=== PATIENT | female | born 1960 | race Caucasian/White ===

== ENCOUNTER → 2018-12-04 13:31 | Outpatient (CLI) | payer BC, SELFPAY ==
[2018-12-06 15:19] LABS: HPV HC, High Risk Positive (Negative)
== END ==
PROVIDERS: Visit Provider Obstetrics & Gynecology
DX: Z12.4 Encounter for screening for malignant neoplasm of cervix (principal)
CPT/HCPCS: 87624; 88175; G0145

== ENCOUNTER → 2018-12-13 13:42 | Outpatient (CLI) | payer BC, SELFPAY ==
--- NOTE | 2018-12-13 | IMM_PTH ---
PATIENT: LUCIANA PARKINSON LOC: [facility] U#:[id number] AGE/SX: 64/F ROOM: RE12/13/[address]: Dr. Gerald Das MD : 1960 BED: DIS: SPEC #: [id number] RECD: 12/14/18 12:25 STATUS: ANDERSON RERemi #: [id number] ALFRED: 12/13/18 00:[address]: Gerald Das DEPT: IMMUNOHISTOCHEMISTRY RECD BY: Tracey Coughlin Tissues: A - Uterine cervix, NOS B - Endocervical Procedures: p16 (initial) KI-67 (add) PHYSICIAN & INSTITUTION [place] [address] SPECIMEN INFORMATION: Tissue Source: A - Cervical biopsy 6 o'clock, B - ECC Clinical Info: Not noted Specimen Number: [id number] A & B CPT code: 48995 x2, 08759 x2 METHODOLOGY: Deparaffinized sections of prefer/formalin-fixed tissue or PAP/DQ stained slides are incubated with monoclonal/polyclonal antibodies/oligonucleotide probes. Localization is made via biotin free immunoperoxidase method. Appropriate controls are performed and reacted as expected. Results on target cell population are indicated in the following table: RESULTS: ANTIBODY / CLONE RESULT Block A P16 (E6H4) positive, patchy and focal Ki-67 (30-9) negative Block B P16 (E6H4) positive, block staining Ki-67 (30-9) positive These tests were developed and their performance characteristics determined by [facility]. They may not have been cleared or approved by the U.S. Food and Drug Administration. The FDA has determined that such clearance or approval is not necessary. INTERPRETATION: A. Cervix, 6 o'clock, biopsy: Focal changes suspicious for HPV cytopathic effects. B. ECC: A minute detached and unoriented fragment of squamous epithelium with moderate dysplastic changes. SJ:theresa 12/15/18
--- NOTE | 2018-12-13 | CER_PTH ---
PATIENT: LUCIANA [facility]ARKINSON [id number] AGE/SX: 64/F ROOM: RE12/13/[address]: Dr. Gerald Das MD : 1960 BED: DIS: SPEC #: [id number] RECD: 12/13/18 13:39 STATUS: ANDERSON VIVIENNE #: [id number] ALFRED: 12/13/18 00:[address]: Gerald Das DEPT: SURGICAL PATHOLOGY RECD BY: Ned Wahl Tissues: A - Uterine cervix, NOS B - Endocervical Procedures: Surgery Specimen Level IV HEADER OPERATION: Colposcopy with biopsy PRE-OP DIAGNOSIS: Not noted TISSUE SUBMITTED: A - Cervical biopsy 6 o'clock, B - ECC MICROSCOPIC DIAGNOSIS A. Cervix, 6 o'clock, biopsy: Focal changes suspicious for HPV cytopathic efficets. Acute and chronic inflammation. See comment. B. ECC: A minute detached and unoriented fragment of squamous epithelium with moderate dysplastic changes (HGSIL, ROSEMARIE II). Fragments of benign endocervical epithelium, benign endocervical mucosa with acute and chronic inflammation, blood and mucous. SOFIYA:theresa 12/14/18 COMMENT A. Immunohistochemistry ([id number]) for surrogate HPV marker (p16) supports the above diagnosis. The specimen predominantly consists of squamous epithelium, squamous mucosa and desquamative benign endocervical epithelial cells. B. Immunohistochemistry ([id number]) for surrogate HPV marker (p16) supports the above diagnosis. MICROSCOPIC DESCRIPTION Slides are reviewed. GROSS DESCRIPTION A - Received in fixative is one container labeled with the patient's name and designated cervical biopsy. The specimen consists of multiple irregular fragments of light robin soft tissue that in aggregate measure 1 x 0.2 x 0.1 cm. The specimen is totally submitted in one cassette. B - Received in fixative is one container labeled with the patient's name and designated ECC. The specimen consists of a scant amount of mucoid tissue submitted for cell block preparation. / SOFIYA:theresa 12/13/18 TC:5 CPT: 20211 x2
== END ==
PROVIDERS: Referring Provider Obstetrics & Gynecology; Visit Provider Obstetrics & Gynecology
DX: R87.612 Low grade squamous intraepithelial lesion on cytologic smear of cervix (LGSIL) (principal)
CPT/HCPCS: 88305; 88341; 88342

== ENCOUNTER 2019-01-19 10:21 | Day surgery (SDC) | payer BC, OTHER, SELFPAY ==
[2019-01-16 12:45] LABS: Hematocrit 43.9 % (37-47); Hemoglobin 14.8 g/dl (12.0-15.0); Mean Corp Hgb Conc 33.7 g/gl (32-36); Mean Corpuscular Hgb 29.8 pg (27.0-32.0); Mean Corpuscular Volume 88.5 fL (81-99); Mean Platelet Vol. 9.9 fl (6.2-12.0); Platelet Count 272 K/mm3 (150-450); RBC Distribution Width CV 13.5 % (11.6-14.6); RBC Distribution Width SD 43.9 fl (35.1-43.9); Red Blood Count 4.96 M/mm3 (4.2-5.4); White Blood Count 6.9 K/mm3 (4.4-11.0)
[2019-01-16 12:48] LABS: Prothrombin Time (Protime)PT. 13.4 SECONDS (11.7-14.9)
[2019-01-16 12:49] LABS: Partial Thromboplast Time 28.5 Seconds (24.1-36.2)
[2019-01-16 12:53] LABS: Scan Indicated on CBC? Y/N NO
[2019-01-16 13:06] LABS: Internal QC Validated? YES +Cl - CLEAR BKGD; Pregnancy, Serum, hCG Quali. NEGATIVE Negative
--- NOTE | 2019-01-19 | IMM_PTH ---
PATIENT: LUCIANA PARKINSON LOC: [facility] U#:[id number] AGE/SX: 58/F ROOM: RE01/19/[address]: Dr. Gerald Das MD : 1960 BED: DIS: 01/19/2019 SPEC #: [id number] RECD: 01/23/19 13:09 STATUS: ANDERSON REQ #: [id number] ALFRED: 01/19/19 00:[address]: Gerald Das DEPT: IMMUNOHISTOCHEMISTRY RECD BY: Tracey Coughlin ENTERED: 01/23/19 13:11 SP TYPE: IMMUNO OTHR DR: Dr. Marty Walters DO Tissues: UTERINE CERVIX LEEP Procedures: p16 (initial) KI-67 (add) P16 (add) PHYSICIAN & INSTITUTION [place] [address] SPECIMEN INFORMATION: Tissue Source: Ectocervix, LEEP conization Clinical Info: Moderate cervical dysplasia Specimen Number: [id number] #1 & 3 CPT code: 41858, 17244 x3 METHODOLOGY: Deparaffinized sections of prefer/formalin-fixed tissue or PAP/DQ stained slides are incubated with monoclonal/polyclonal antibodies/oligonucleotide probes. Localization is made via biotin free immunoperoxidase method. Appropriate controls are performed and reacted as expected. Results on target cell population are indicated in the following table: RESULTS: ANTIBODY / CLONE RESULT Block 1 P16 (E6H4) negative Ki-67 (30-9) negative Block 3 P16 (E6H4) positive, patchy Ki-67 (30-9) positive, low These tests were developed and their performance characteristics determined by [facility]. They may not have been cleared or approved by the U.S. Food and Drug Administration. The FDA has determined that such clearance or approval is not necessary. INTERPRETATION: Ectocervix, LEEP conization: Focal mild squamous dysplasia. SOFIYA:theresa 01/24/19 Comment: Dysplastic changes are noted predominantly in the detached fragment of the epithelium.
[2019-01-19 10:50] VITALS: BP 149/79; PULSE 58; RESP 14; TEMP 36.3; O2SAT 96; BMI 33.0
[2019-01-19 10:54] LABS: Internal QC Validated? YES +Cl - CLEAR BKGD
[2019-01-19 10:58] LABS: Pregnancy, Urine Negative Negative
--- NOTE | 2019-01-19 12:00 | CER_PTH ---
PATIENT: LUCIANA PARKINSON LOC: [facility] U#:[id number] AGE/SX: 58/F ROOM: RE01/19/[address]: Dr. Gerald Das MD : 1960 BED: DIS: 01/19/2019 SPEC #: [id number] RECD: 01/22/19 07:15 STATUS: ANDERSON VIVIENNE #: [id number] ALFRED: 01/19/19 12:[address]: Gerald Das DEPT: SURGICAL PATHOLOGY RECD BY: Jing Parnell ENTERED: 01/22/19 11:08 SP TYPE: CERV OTHR DR: Dr. Marty Walters DO Tissues: UTERINE CERVIX LEEP Procedures: Surgery Specimen Level V HEADER OPERATION: LEEP cone PRE-OP DIAGNOSIS: Moderate cervical dysplasia TISSUE SUBMITTED: Ectocervix MICROSCOPIC DIAGNOSIS Ectocervix, LEEP conization: Focal mild squamous dysplasia (LGSIL and ROSEMARIE I). The resection margins are free of dysplastic changes. See comment. SOFIYA:theresa 01/23/19 COMMENT The epithelium is denuded in most of the specimen and also shows extensive cautery artifacts. Dysplastic changes are noted in the detached fragment of the epithelium. Please make reference to previous specimen ([id number]) cervix, 6 o'clock, biopsy with diagnosis of focal changes suspicious for HPV cytopathic effects and ECC with diagnosis of a minute detached and unoriented fragment of squamous epithelium with moderate dysplastic changes. MICROSCOPIC DESCRIPTION Slides are reviewed. GROSS DESCRIPTION Received in fixative is one container labeled with the patient's name and designated ectocervix. The specimen consists of an unoriented piece of cervical LEEP conization measuring 1.6 x 1.2 cm and up to 0.5 cm in length. No mucosal lesion is identified. The nonmucosal surface is inked black. The specimen is serially sectioned and submitted entirely in four cassettes with each cassette containing one quadrant. / SOFIYA:theresa 01/22/19 TC:5 [facility]: [id number]
--- NOTE | 2019-01-19 12:13 | DCINST_ITS ---
You will use the following diet at home:: No restrictions Your food should be the consistency of: Regular Discharge Activity: Return to Normal Activity, May Drive, May not drive while taking narcotic pain medications., May Shower Return to work on:: 01/22/19 May shower in (days): 0 May resume sexual activity in: 4 weeks Call your doctor if your incision/area has: Sudden Increased Bleeding, Foul Smelling Discharge Call your doctor if you observe: Fever of 101 or Higher, Inability to urinate, Inability to have a bowel movement, Using more than one pad per hour, Shortness of breath, Chest pain, Calf discomfort, Uncontrolled pain Cleanse incision/area with: Soap & Water Allergies/Adverse Reactions: Allergies prednisone Allergy (Verified 01/15/19 09:53) sob and tachycardia Medications to take at Discharge Ibuprofen 600 mg PO 4X/DAY #20 tab 01/19/19 Oxycodone [Oxyir] 5 mg PO Q4H PRN PRN 7 Days #10 tab 01/19/19 The following prescriptions were given: Oxycodone [Oxyir] 5 mg PO Q4H PRN PRN 7 Days #10 tab PRN Reason: Severe Pain (6-10) Ibuprofen 600 mg PO 4X/DAY #20 tab Primary Care Physician: Marty Walters [Primary Care Provider] - Test Results: Test results from this visit will be discussed in further detail at your follow- up appointment, if applicable. Please Follow Up With: Gerald Das MD When: one week Proposed Discharge Date: 01/19/19
--- NOTE | 2019-01-19 12:25 | PCM.OPRPT ---
Problem List (1) Cervical dysplasia, moderate Status: Chronic Report of Operation Date of Procedure: 01/19/19 Pre-Operative Diagnosis: Moderate cervical dysplasia Post-Operative Diagnosis: Same Surgery/Procedure Performed:: Loop Electrosurgical Excisional Procedure Description of Surgical Findings:: Normal appearing cervix, Lugol's staining to cervical OS legal specialist: None Type of Anesthesia:: MAC Anesthesiologist: Yash Briggs Special Medications: none Specimen's removed: Portion of ectocervix Drains: none Estimated Blood Loss (mL): minimal Fluids Replaced: 400cc LR Description of Procedure: [place] was taken tot he OR with IV running. She was given two grams of Cefotetan intravenously for surgical prophylaxis. MAC anesthesia was introduced without complication. She was then prepped and draped in the dorsal lithotomy position. A shield speculum was then placed. The cervix was identified and the anterior portion grasped with a curved Allis clamp. The cervix was painted with Lugol's. Using a medium loop the ectocervix was removed. Ball cautery was used to cauterized the margins, base, and endocervical canal. hemostasis was excellent. She was reversed from anesthesia and taken tot recovery room in stable condition. Sponge and instrument counts were correct. Grafts/Implants Used: none - Complications none - Admit VTE Documentation VTE Present on Admission: No VTE Mechan Device Prophylaxis: [facility] VTE Pharm Prophylaxis ordered?: No
--- NOTE | 2019-01-19 12:31 | OP.PCM_ITS ---
Problem List (1) Cervical dysplasia, moderate Status: Chronic Report of Operation Date of Procedure: 01/19/19 Pre-Operative Diagnosis: Moderate cervical dysplasia Post-Operative Diagnosis: Same Surgery/Procedure Performed:: Loop Electrosurgical Excisional Procedure Description of Surgical Findings:: Normal appearing cervix, Lugol's staining to cervical OS city constable: None Type of Anesthesia:: MAC Anesthesiologist: Yash Briggs Special Medications: none Specimen's removed: Portion of ectocervix Drains: none Estimated Blood Loss (mL): minimal Fluids Replaced: 400cc LR Description of Procedure: [place] was taken tot he OR with IV running. She was given two grams of Cefotetan intravenously for surgical prophylaxis. MAC anesthesia was introduced without complication. She was then prepped and draped in the dorsal lithotomy position. A shield speculum was then placed. The cervix was identified and the anterior portion grasped with a curved Allis clamp. The cervix was painted with Lugol's. Using a medium loop the ectocervix was removed. Ball cautery was used to cauterized the margins, base, and endocervical canal. hemostasis was excellent. She was reversed from anesthesia and taken tot recovery room in stable condition. Sponge and instrument counts were correct. Grafts/Implants Used: none - Complications none - Admit VTE Documentation VTE Present on Admission: No VTE Mechan Device Prophylaxis: [facility] VTE Pharm Prophylaxis ordered?: No
[2019-01-19 12:32] VITALS: BP 112/65; BP 149/79; PULSE 69; RESP 16; TEMP 36.6; O2SAT 95
[2019-01-19 12:40] VITALS: BP 118/77; BP 149/79; PULSE 68; RESP 16; O2SAT 94
[2019-01-19 12:45] VITALS: BP 118/75; BP 149/79; PULSE 65; RESP 16; O2SAT 93
[2019-01-19 12:51] VITALS: BP 137/74; BP 149/79; PULSE 68; RESP 16; TEMP 36.3; O2SAT 94
[2019-01-19 13:45] VITALS: BP 149/79
== END 2019-01-19 13:47 | disposition home or self-care (01) ==
LOC: SDC 10:23 → AC 10:23
PROVIDERS: Family Provider Family Medicine; PCP Family Medicine; Referring Provider Obstetrics & Gynecology; Visit Provider Obstetrics & Gynecology
PROC: 0UBC7ZZ Excision of Cervix, Via Natural or Artificial Opening (ICD-10-PCS; CPT 57522; principal; 2019-01-19 11:45)
DX: N87.1 Moderate cervical dysplasia (principal); M19.90 Unspecified osteoarthritis, unspecified site; J45.909 Unspecified asthma, uncomplicated; Z87.11 Personal history of peptic ulcer disease
CPT/HCPCS: 00940; 57522; 36415; 81025; 84703; 85027; 85610; 85730; 86850; 86900; 88307; 88341; 88342; J7120